=== PATIENT | female | born 1950 | race Caucasian/White ===

== ENCOUNTER 2022-03-14 07:59 | Day surgery (SDC) | payer OTHER ==
[~2022-03-14] VITALS: Ht 157.5 cm; Wt 49.1 kg
[~2022-03-14 07:59] MED LIST: Co Q-10300 MG PO; ESTRADIOL; MECL25 PO; MELA3 PO; OMEGA 3 500 SO1 EACH PO; PROACE100 PO; RXPROACE PO; Simvastatin20 MG PO; URSO300 PO; VAGIFEM10 MCG VG; VITAMIN D32000 UNIT PO; VITAMINS
[2022-03-14] MEDS ORDERED: PRAV20 (08:18)
== END 2022-03-14 10:00 | disposition home or self-care (01) ==
LOC: ORSCSDS 07:59
PROVIDERS: Surgery
PROC: 0DBM8ZX Excision of Descending Colon, Via Natural or Artificial Opening Endoscopic, Diagnostic (ICD-10-PCS; principal; 2022-03-14 09:15)
DX: Z12.11 Encounter for screening for malignant neoplasm of colon (principal); Z86.010 Personal history of colon polyps; K63.5 Polyp of colon; E78.5 Hyperlipidemia, unspecified; F17.210 Nicotine dependence, cigarettes, uncomplicated; Z79.899 Other long term (current) drug therapy
CPT/HCPCS: 88305; J2405; J2704; J7120

== ENCOUNTER → 2024-06-22 | Outpatient (CLI) | payer OTHER ==
[~2024-06-22] MED LIST changes: +PRAV20
[2024-06-22 11:24] LABS: BASOPHILS ABSOLUTE AUTO 0.01 K/mm3 (0.00-0.23); BASOPHILS PERCENT AUTO 0 % (0-2); EOSINOPHILS ABSOLUTE AUTO 0.03 K/mm3 (0.00-0.68); EOSINOPHILS PERCENT AUTO 1 % (0-6); Hematocrit 43.6 % (33.0-51.0); Hemoglobin 14.2 g/dL (11.5-16.0); IMMATURE GRAN ABSOLUTE AUTO 0.01 K/mm3 (0.00-0.10); IMMATURE GRAN PERCENT AUTO 0 % (0-1); LYMPHOCYTES ABSOLUTE AUTO 1.47 K/mm3 (0.84-5.20); LYMPHOCYTES PERCENT AUTO 24 % (21-46); MONOCYTES ABSOLUTE AUTO 0.54 K/mm3 (0.16-1.47); MONOCYTES PERCENT AUTO 9 % (4-13); Mean Corpuscular HGB 30.1 pg (26.0-34.0); Mean Corpuscular HGB Conc 32.6 g/dL (31.5-36.5); Mean Corpuscular Volume 93 fL (80-100); Mean Platelet Volume 11.1 fL (9.1-12.4); NEUTROPHILS ABSOLUTE AUTO 4.15 K/mm3 (1.96-9.15); NEUTROPHILS PERCENT AUTO 67 % (41-73); Platelet Count 223 K/mm3 (150-400); RDW Coefficient Variation 12.5 % (11.7-14.2); RDW Standard Deviation 42.5 fL (35.1-46.3); Red Blood Cell Count 4.71 M/mm3 (3.80-5.20); White Blood Cell Count 6.21 K/mm3 (4.00-11.30)
[2024-06-22 11:40] LABS: Albumin, Blood 4.2 g/dL (3.4-5.0); Bilirubin, Total 0.8 mg/dL (0.1-1.0); Bun/Creatinine Ratio 14.6 (12.0-20.0); Calcium, Blood 9.3 mg/dL (8.5-10.1); Creatinine, Blood 0.82 mg/dL (0.40-1.00); Globulin, Blood 4.3 g/dL (2.2-4.0); Potassium, Blood 3.9 mmol/L (3.5-5.5); Total Protein, Blood 8.5 g/dL (6.4-8.2)
== END | disposition home or self-care (01) ==
LOC: LAB 11:20 → LAB SHORT 11:20
PROVIDERS: Chiropractor
DX: R07.81 Pleurodynia (principal)
CPT/HCPCS: 80053; 84484; 85025; 85379

== ENCOUNTER → 2025-01-19 | Outpatient (CLI) | payer OTHER ==
[2025-01-19 20:53] LABS: Creatinine Urine 55.7 mg/dL (27.00-270.00)
== END ==
LOC: LAB 09:00 → LAB SHORT 09:00
PROVIDERS: Internal Medicine Endocrinology, Diabetes & Metabolism
DX: M81.0 Age-related osteoporosis without current pathological fracture (principal)
CPT/HCPCS: 81050; 82340; 82570

== ENCOUNTER 2025-01-31 12:52 | Inpatient (IN) | payer OTHER ==
[~2025-01-31] VITALS: Ht 157.5 cm; Wt 59.0 kg
[2025-01-31] MEDS ORDERED: Ondansetron HCl 2 MG / ML 2ML Vial IV ONE (13:10)
[2025-01-31] MEDS ORDERED: Morphine Sulfate 4 MG/1 ML Injection IV ONE ×3 (13:10→16:25)
[2025-01-31] MEDS ORDERED: PRAVASTATIN SOD40 MG PO (13:22)
[2025-01-31 14:35] LABS: BASOPHILS ABSOLUTE AUTO 0.02 K/mm3 (0.00-0.23); BASOPHILS PERCENT AUTO 0 % (0-2); EOSINOPHILS ABSOLUTE AUTO 0.05 K/mm3 (0.00-0.68); EOSINOPHILS PERCENT AUTO 1 % (0-6); Hematocrit 36.7 % (33.0-51.0); Hemoglobin 12.2 g/dL (11.5-16.0); IMMATURE GRAN ABSOLUTE AUTO 0.11 K/mm3 (0.00-0.10); IMMATURE GRAN PERCENT AUTO 1 % (0-1); LYMPHOCYTES ABSOLUTE AUTO 1.66 K/mm3 (0.84-5.20); LYMPHOCYTES PERCENT AUTO 19 % (21-46); MONOCYTES ABSOLUTE AUTO 0.74 K/mm3 (0.16-1.47); MONOCYTES PERCENT AUTO 9 % (4-13); Mean Corpuscular HGB Conc 33.2 g/dL (31.5-36.5); Mean Corpuscular Volume 92 fL (80-100); NEUTROPHILS ABSOLUTE AUTO 6.15 K/mm3 (1.96-9.15); NEUTROPHILS PERCENT AUTO 70 % (41-73); NRBC ABSOLUTE 0.00 K/mm3 (0.00-0.02); NRBC Auto 0.0 /100 WBC (0.0-0.2); Platelet Count 235 K/mm3 (150-400); RDW Coefficient Variation 12.7 % (11.7-14.2); RDW Standard Deviation 42.5 fL (35.1-46.3)
[2025-01-31 14:43] LABS: Anion Gap 5.0 mmol/L (3-11); Blood Urea Nitrogen 13.0 mg/dL (8-24); CO2, Blood 30.0 mmol/L (21-32); Calcium, Blood 8.6 mg/dL (8.5-10.1); Chloride, Blood 106.0 mmol/L (98-108); Creatinine, Blood 0.58 mg/dL (0.40-1.00); Glucose, Blood 127.0 mg/dL (70-99); Potassium, Blood 4.0 mmol/L (3.5-5.5); Sodium, Blood 137.0 mmol/L (136-145)
[2025-01-31] MEDS ORDERED: Ketorolac Tromethamine 30mg Vial IV ONE (18:25)
[2025-01-31] MEDS ORDERED: Morphine Sulfate 4 MG/1 ML Injection IV PRN (20:00)
[2025-01-31] MEDS ORDERED: NS 1,000 ML IV SCH (20:00)
[2025-01-31] MEDS ORDERED: HydrALAZINE HCl 20 MG / ML 1ML Vial IV PRN (20:20)
[2025-01-31 21:29] VITALS: BP 149/74
[2025-01-31] MEDS ORDERED: ACTIGALL300 MG PO (21:38)
[2025-01-31] MEDS ORDERED: ALBU90OI INH (21:39)
[2025-01-31] MEDS ORDERED: Ketorolac Tromethamine 15mg Vial IV PRN (22:05)
--- NOTE | 2025-01-31 22:05 | NUR ---
2153 CALL FROM HOSPITALIST REGARDING MISSED CALL. PT PREFERS TORADOL AND ROBAXIN INSTEAD OF MORPHINE. TELEPHONE ORDERS GIVEN.
--- NOTE | 2025-02-01 00:57 | NUR ---
1225 RN TO ROOM TO ROUND; PT ASLEEP. CALL LIGHT WITHIN REACH.
--- NOTE | 2025-02-01 02:47 | NUR ---
RESIDENT PROVIDER ROUNDED THROUGH UNIT AND THIS RN DISCUSSED PT WITH HIM. PT REQUESTED HOME URSODIOL, PT DECLINES SCDs TONIGHT.
[2025-02-01 04:37] VITALS: BP 163/72
[2025-02-01 05:32] LABS: BASOPHILS ABSOLUTE AUTO 0.01 K/mm3 (0.00-0.23); BASOPHILS PERCENT AUTO 0 % (0-2); EOSINOPHILS ABSOLUTE AUTO 0.05 K/mm3 (0.00-0.68); EOSINOPHILS PERCENT AUTO 1 % (0-6); Hematocrit 34.6 % (33.0-51.0); Hemoglobin 11.4 g/dL (11.5-16.0); IMMATURE GRAN ABSOLUTE AUTO 0.04 K/mm3 (0.00-0.10); IMMATURE GRAN PERCENT AUTO 1 % (0-1); LYMPHOCYTES ABSOLUTE AUTO 1.56 K/mm3 (0.84-5.20); LYMPHOCYTES PERCENT AUTO 19 % (21-46); MONOCYTES ABSOLUTE AUTO 0.75 K/mm3 (0.16-1.47); MONOCYTES PERCENT AUTO 9 % (4-13); Mean Corpuscular HGB Conc 32.9 g/dL (31.5-36.5); Mean Corpuscular Volume 93 fL (80-100); NEUTROPHILS ABSOLUTE AUTO 6.01 K/mm3 (1.96-9.15); NEUTROPHILS PERCENT AUTO 71 % (41-73); NRBC ABSOLUTE 0.00 K/mm3 (0.00-0.02); NRBC Auto 0.0 /100 WBC (0.0-0.2); Platelet Count 168 K/mm3 (150-400); RDW Coefficient Variation 12.9 % (11.7-14.2); RDW Standard Deviation 43.8 fL (35.1-46.3)
--- NOTE | 2025-02-01 05:37 | NUR ---
SHIFT SUMMARY NO ACUTE EVENTS OVERNIGHT. PT WITH SEVERE PAIN WITH MOVEMENT. PUREWICK IN PLACE. PT AWAITING TRANSFER TO [facility] ON SUNDAY WITH SURGERY ON SUNDAY. PT TOLERATING PO INTAKE.
[2025-02-01 05:46] LABS: Prothrombin Time Results 11.2 Sec (9.7-11.5)
[2025-02-01 06:07] LABS: Alanine Aminotransfer (ALT/SGP 40.0 U/L (12-78); Albumin, Blood 3.4 g/dL (3.4-5.0); Albumin/Globulin Ratio 0.9 (0.8-1.8); Anion Gap 6.0 mmol/L (3-11); Aspartate Aminotrans (AST/SGOT 32.0 U/L (12-37); Bilirubin, Total 1.1 mg/dL (0.1-1.0); Blood Urea Nitrogen 17.0 mg/dL (8-24); CO2, Blood 30.0 mmol/L (21-32); Calcium, Blood 8.7 mg/dL (8.5-10.1); Chloride, Blood 102.0 mmol/L (98-108); Creatinine, Blood 0.71 mg/dL (0.40-1.00); Globulin, Blood 3.8 g/dL (2.2-4.0); Glucose, Blood 138.0 mg/dL (70-99); Potassium, Blood 4.0 mmol/L (3.5-5.5); Sodium, Blood 134.0 mmol/L (136-145); Total Protein, Blood 7.2 g/dL (6.4-8.2)
[2025-02-01 07:11] VITALS: BP 185/77
[2025-02-01] MEDS ORDERED: Enoxaparin 40 MG/0.4 ML SYR SC SCH (09:00)
[2025-02-01] MEDS ORDERED: Albuterol HFA200 ACT/6.7 GM INH INH PRN (10:25)
[2025-02-01] MEDS ORDERED: Ondansetron HCl 2 MG / ML 2ML Vial IV PRN (12:00)
[2025-02-01 16:29] VITALS: BP 186/82
--- NOTE | 2025-02-01 17:44 | NUR ---
SHIFT SUMMARY PT ON BEDREST AWAITING TRANSFER TO [facility] ON SUNDAY TO SEE SURGEON. DENIES NEEDS. EATING MEAL TRAY. IV PRESENTLY TO .
[2025-02-01 18:48] VITALS: BP 197/96
[2025-02-01 18:49] VITALS: BP 194/91
[2025-02-01 19:41] VITALS: BP 173/88
[2025-02-02] VITALS (9 sets, daily range): BP systolic 151–181; BP diastolic 76–92
--- NOTE | 2025-02-02 01:58 | NUR ---
I/S PT WITH LOW GRADE TEMPERATURE AND THIS RN DISCUSSED GETTING INCENTIVE SPIROMETER. I/S GIVEN TO PATIENT AND INSTRUCTIONS VERBALLY GIVEN. PT RETURN DEMONSTRATED I/S USE. PRIMARY RN NOTIFIED OF PT USE.
--- NOTE | 2025-02-02 03:29 | NUR ---
RN TO ROOM TO ROUND; PT SLEEPING, EQUAL UNLABORED BREATHS; CALL LIGHT WITHIN REACH.
[2025-02-02 05:10] LABS: BASOPHILS ABSOLUTE AUTO 0.02 K/mm3 (0.00-0.23); BASOPHILS PERCENT AUTO 0 % (0-2); EOSINOPHILS ABSOLUTE AUTO 0.07 K/mm3 (0.00-0.68); EOSINOPHILS PERCENT AUTO 1 % (0-6); Hematocrit 32.1 % (33.0-51.0); Hemoglobin 11.0 g/dL (11.5-16.0); IMMATURE GRAN ABSOLUTE AUTO 0.04 K/mm3 (0.00-0.10); IMMATURE GRAN PERCENT AUTO 0 % (0-1); LYMPHOCYTES ABSOLUTE AUTO 1.20 K/mm3 (0.84-5.20); LYMPHOCYTES PERCENT AUTO 12 % (21-46); MONOCYTES ABSOLUTE AUTO 0.75 K/mm3 (0.16-1.47); MONOCYTES PERCENT AUTO 7 % (4-13); Mean Corpuscular HGB Conc 34.3 g/dL (31.5-36.5); Mean Corpuscular Volume 90 fL (80-100); NEUTROPHILS ABSOLUTE AUTO 8.03 K/mm3 (1.96-9.15); NEUTROPHILS PERCENT AUTO 79 % (41-73); NRBC ABSOLUTE 0.00 K/mm3 (0.00-0.02); NRBC Auto 0.0 /100 WBC (0.0-0.2); Platelet Count 168 K/mm3 (150-400); RDW Coefficient Variation 12.6 % (11.7-14.2); RDW Standard Deviation 41.6 fL (35.1-46.3)
[2025-02-02 05:29] LABS: Alanine Aminotransfer (ALT/SGP 33.0 U/L (12-78); Albumin, Blood 3.1 g/dL (3.4-5.0); Albumin/Globulin Ratio 0.7 (0.8-1.8); Anion Gap 6.0 mmol/L (3-11); Aspartate Aminotrans (AST/SGOT 29.0 U/L (12-37); Bilirubin, Total 1.6 mg/dL (0.1-1.0); Blood Urea Nitrogen 11.0 mg/dL (8-24); CO2, Blood 30.0 mmol/L (21-32); Calcium, Blood 8.4 mg/dL (8.5-10.1); Chloride, Blood 98.0 mmol/L (98-108); Creatinine, Blood 0.65 mg/dL (0.40-1.00); Globulin, Blood 4.2 g/dL (2.2-4.0); Glucose, Blood 166.0 mg/dL (70-99); Potassium, Blood 3.9 mmol/L (3.5-5.5); Sodium, Blood 130.0 mmol/L (136-145); Total Protein, Blood 7.3 g/dL (6.4-8.2)
--- NOTE | 2025-02-02 06:33 | NUR ---
SHIFT SUMMARY NOC. PT ADMIT FOR ACETABULAR FX. PT AWAITING PLACEMENT TO [facility]. PT MEDICATED FOR PAIN WITH REPORTED IMPROVED RELIEF OF SX. PT VOIDING URINE VIA PUREWICK. PT ON BEDREST R/T FX. PT ON 1.5 L VIA N/C ENCOURAGING T/C/D/B. PT HAD LOW GRADE TEMP AT START OF SHIFT WHICH IMPROVED. PT'S HTN ALSO IMPROVED THIS SHIFT. MAKES NEEDS KNOWN, CALL LIGHT IN REACH.
--- NOTE | 2025-02-02 11:04 | NUR ---
[facility] UPDATE: [facility]TER STATES THEY ARE WAITING FOR SOME DISCHARGES AND PT IS CURRENTLY ON THEIR BOARD WAIING FOR A BED, STATES MORE THAN LIKELY PT WILL BE TRANSFERRED TOMORROW AND TAKEN TO THE OR ON SUNDAY.
--- NOTE | 2025-02-02 11:18 | NUR ---
MIKA BRENNAN INTO ROOM TO ASSESS PT. CONTINUIUNG TO AWAIT [facility] BED TO OPEN FOR COBRA TRANSFER. PT STATES ROBAXIN/TORADOL STILL MANAGING PAIN AT THIS TIME TO DESIRED LEVEL.
[2025-02-02] MEDS ORDERED: HydrALAZINE HCl 20 MG / ML 1ML Vial IV PRN (12:10)
--- NOTE | 2025-02-02 16:42 | NUR ---
SUMMARY ASSUMED CARE OF PT @0700. AXO4, VSS WITH HTN NOTED, THIS HTN CONTINUED UNTIL PRN HYDRALZINE ORDERS OBTAINED, NOW STABLE <160SBP. STARTED ON 1.5LNC, TRIALED TO RA UNSUCCESFUL, PT BACK ON 1.5L NC - SPO2 >93% CURRENTLY, PT USING INCENTIVE SPIROMETER WELL. PUREWICK IN PLACE DUE TO HIP PAIN. L JIP REMAINS PAINFUL BUT PT NOT WANTING TO USE NARCOTICS UNLESS NECESSARY, UTILIZING ROBAXIN AND TORADOL CURRENTLY. AWAITING BED AT [facility] T/O SHIFT FOR COBRA. OTHERWISE, PT RESTING OFF AND ON. CALL LIGHT WITHIN REACH.
[2025-02-02] MEDS ORDERED: Ondansetron HCl 2 MG / ML 2ML Vial IV ONE (17:25)
--- NOTE | 2025-02-02 17:44 | NUR ---
REPORT GIVEN TO HARJINDER MAGANA AT [facility]. AWAITING AMBULANCE TEAM TO PICK PT UP FOR COBTRA. PT AND FAMILY AWARE OF THIS. WILL BE MEDICATING FOR PAIN WITH MOP OV PER PT REQUEST BEFORE TRANSPORT. BELONGINGS WITH PT. VSS CURRENTLY.
[2025-02-02] MEDS ORDERED: FentaNYL Citrate 50 MCG/ML 2 ML Injection IV ONE (20:30)
--- NOTE | 2025-02-02 21:01 | NUR ---
2046 PT DEPARTS VIA GURNEY WITH TRANSPORT STAFF. PT UPDATED ON PLAN OF CARE AND WAS MEDICATED PER 1X ORDER
--- NOTE | 2025-02-02 21:19 | NUR ---
2024 CALL TO HOSPITALIST FOR 1X DOSE OF FENTANYL PRIOR TO TRANSFER; ORDERS OBTAINED AND PLACED IN SYSTEM
== END 2025-02-02 20:50 | disposition short-term general hospital (02) | DRG 544 ==
LOC: ER 12:52 → SURS 19:56
PROVIDERS: Emergency Medicine; Family Medicine; Student in an Organized Health Care Education/Training Program; ADMIT Internal Medicine
DX: M80.852A Other osteoporosis with current pathological fracture, left femur, initial encounter for fracture (principal); S32.492A Other specified fracture of left acetabulum, initial encounter for closed fracture; F17.210 Nicotine dependence, cigarettes, uncomplicated; E78.5 Hyperlipidemia, unspecified; J44.9 Chronic obstructive pulmonary disease, unspecified; K74.3 Primary biliary cirrhosis; I10 Essential (primary) hypertension; R55 Syncope and collapse; Z88.8 Allergy status to other drugs, medicaments and biological substances; Z88.5 Allergy status to narcotic agent; Z79.899 Other long term (current) drug therapy; Z90.710 Acquired absence of both cervix and uterus; Z90.722 Acquired absence of ovaries, bilateral; Z98.890 Other specified postprocedural states; Z79.51 Long term (current) use of inhaled steroids; W01.0XXA Fall on same level from slipping, tripping and stumbling without subsequent striking against object, initial encounter
CPT/HCPCS: 27250; 36415; 72170; 72192; 73502; 80048; 80053; 85025; 85610; 94762; 96374-59; 96375-59; 96376-59; 99152; 99153; 99285-25; A9270; J0360; J1650; J1885; J2270; J2405; J2704; J3010; J7030

== ENCOUNTER → 2025-06-16 | Outpatient (CLI) | payer OTHER ==
[~2025-06-16] MED LIST changes: +ACTIGALL300 MG PO; +ALBU90OI INH; +PRAVASTATIN SOD40 MG PO
== END | disposition home or self-care (01) ==
LOC: LAB 17:40 → LAB SHORT 17:40
DX: N39.0 Urinary tract infection, site not specified (principal)
CPT/HCPCS: 87077; 87086; 87186